=== PATIENT | male | born 1985 | race Caucasian/White ===

== ENCOUNTER 2016-12-27 18:33 | Emergency (ER) | payer BC ==
[2016-12-27 18:38] VITALS: BP 146/93; PULSE 78; RESP 16; TEMP 98.5; O2SAT 100
[2016-12-27] MEDS ORDERED: ceFAZolin 1 GM in Sodium Chloride 0.9% 100 ML IVPB STA (19:55)
[2016-12-27] MEDS ORDERED: Absorbable Gelatin Sponge Size 12-7 ONE ×2 (20:13→22:39)
[2016-12-27] MEDS ORDERED: Silver Nitrate Topical - Stick ONE (20:14)
--- NOTE | 2016-12-27 20:59 | ED PDOC ---
Upper Extremity Pain/Injury Time Seen by Provider: 12/27/16 18:53 Chief Complaint (Nursing): Finger,Hand,&Wrist Chief Complaint (Provider): Right hand injury History Per: Patient History/Exam Limitations: no limitations Onset/Duration Of Symptoms: Mins (prior to arrival) Current Symptoms Are (Timing): Still Present Additional Complaint(s): Jacob Dawson is a 31 year old male, with no past medical history, who presents to the emergency department due to a right hand injury prior to arrival. Patient reports he jammed his right third finger in an iron. He sustained significant swelling, pain, and bleeding. He denies any numbness and tingling. No further medical complaints. PMD: None provided. Past Medical History Reviewed: Historical Data, Nursing Documentation, Vital Signs Vital Signs: Last Vital Signs Temp 98.5 F 12/27/16 18:36 Pulse 78 12/27/16 18:36 Resp 16 12/27/16 18:36 BP 146/93 H 12/27/16 18:36 Pulse Ox 100 12/27/16 18:36 - Medical History PMH: No Chronic Diseases - Family History Family History: States: Unknown Family Hx - Social History Current smoker - smoking cessation education provided: No Alcohol: None Drugs: Denies - Home Medications Home Medications: Ambulatory Orders Medication Instructions Recorded Clindamycin [Cleocin] 300 mg PO TID #30 cap 12/27/16 - Allergies Allergies/Adverse Reactions: Allergies Allergy/AdvReac Type Severity Reaction Status Date / Time No Known Allergies Allergy Verified 12/27/16 18:35 Review of Systems ROS Statement: Except As Marked, All Systems Reviewed And Found Negative Musculoskeletal: Positive for: Hand Pain (Right hand third finger injury. Significant swelling, pain, and bleeding). Negative for: Other (No numbness and tingling midst pain) Physical Exam - Reviewed Nursing Documentation Reviewed: Yes Vital Signs Reviewed: Yes - Physical Exam Appears: Positive for: Well, Non-toxic, No Acute Distress Head Exam: Positive for: ATRAUMATIC, NORMAL INSPECTION, NORMOCEPHALIC Skin: Positive for: Normal Color, Warm, DRY Eye Exam: Positive for: Normal appearance Respiratory: Positive for: Normal Breath Sounds. Negative for: Respiratory Distress Extremity: Positive for: Normal ROM (right hand digits have full ROM ), Tenderness (RT hand third DIP cut), Swelling (RT hand, third digit), Other ( Bleeding underneath nail bed. Neuro-vascular intact) Neurologic/Psych: Positive for: Alert, Oriented - ECG O2 Sat by Pulse Oximetry: 100 (RA) Pulse Ox Interpretation: Normal Medical Decision Making Medical Decision Making: Initial Impression: Rt hand injury Initial Plan: --Hand left 3 views routine [RAD] --Ancef IV X-ray done show common fracture and displacement. Nail is avulsed, was removed with lidocaine 3ccs without epi. Nail removed without difficulty. Nail bed has puncture wound caused by displaced bone with active bleeding. Silver nitrate, gel foam with gauze was used to stop bleeding. Finger is at the level of the heart. Dr. Mujica is aware of case, but patient prefers seeing own biotech production specialist. Patient was given Ancef IV. 21:40 Continuous bleeding. Consult with Dr. Glass, she suggested to try to push the bone back in. Will attempt at ER with digital block and lidocaine. If unsuccessful specialist will come. Bleeding not controlled with silver nitrate, lidocaine, pressure, gel foam and elevation 2241: bleeding controlled, wound sutured advised strongly to f.u with pmd and with hand surgeon. given abx PO for d.c stable VS and well appearing. Scribe Attestation: Documented by Rafael Gonzalez, acting as a scribe for Renu QUINTANILLA. Provider Scribe Attestation: All medical record entries made by the Scribe were at my direction and personally dictated by me. I have reviewed the chart and agree that the record accurately reflects my personal performance of the history, physical exam, medical decision making, and the department course for this patient. I have also personally directed, reviewed, and agree with the discharge instructions and disposition. Procedures - Laceration/Wound Repair finger Wound's Depth, Shape: irregular, contused tissue Wound Explored: clean Betadine Prep?: No Anesthesia: 1% Lidocaine Volume Anesthetic (ccs): 6 Wound Debrided: minimal Wound Repaired With: Sutures Deep Layer Suture Size/Type: 5:0, chromic Wound Complexity: Complex Sterile Dressing Applied?: Yes Splint Applied?: Yes Progress: displaced bone placed under skin tissue and nail bed sutured, bleeding stopped. gel foam applied and finger splint applied. Disposition - Clinical Impression Clinical Impression: Finger fracture, Nail avulsion, Puncture wound - Disposition Referrals: [employer] [facility] [Outside] Manuel Johansen MD [Medical Doctor] - Sierra Alanis MD [Staff Provider] - Disposition: Routine/Home Disposition Time: 22:42 Condition: STABLE Additional Instructions: it is imperative you see a hand surgeon as soon as possible. Prescriptions: Clindamycin [Cleocin] 300 mg PO TID #30 cap Instructions: Finger Fracture (ED), Nail Avulsion (ED) Forms: [facility] ED School/Work Excuse
[2016-12-27] MEDS ORDERED: Lidocaine 1% Inj (20ml) ONE (21:47)
--- NOTE | 2016-12-28 10:29 | RAD ---
PROCEDURE: Right Hand Radiographs. HISTORY: Trauma. Attention 5th digit. COMPARISON: None. FINDINGS: BONES: Comminuted fracture distal tuft distal phalanx 3rd finger. Nail bed appears disrupted with subungual air JOINTS: Normal. No osteoarthritic changes. SOFT TISSUES: Normal. OTHER FINDINGS: None. IMPRESSION: Comminuted fracture distal tuft distal phalanx 3rd finger. Nail bed appears disrupted with subungual air. . Note that this report was placed in PA review folder followup
== END 2016-12-27 23:02 | disposition home or self-care (01) ==
LOC: H.ER 18:33
DX: S62.622A Displaced fracture of middle phalanx of right middle finger, initial encounter for closed fracture (principal); W22.8XXA Striking against or struck by other objects, initial encounter; Y93.9 Activity, unspecified; Z23 Encounter for immunization
CPT/HCPCS: 11730; 12001; 73130; 90471; 90715; 96365; 99282; J0690